=== PATIENT | male | born 1980 | race Hispanic/Latino ===

== ENCOUNTER 2024-06-30 07:26 | Outpatient (CLI) | payer OTHER | END 2024-06-30 07:27 | disposition home or self-care (01) | LOC: CSHMRI 07:26 | PROVIDERS: ATTEND Family Medicine Sports Medicine | DX: M25.431 Effusion, right wrist (principal); M65.98 Unspecified synovitis and tenosynovitis, other site; M77.8 Other enthesopathies, not elsewhere classified; S66.319A Strain of extensor muscle, fascia and tendon of unspecified finger at wrist and hand level, initial encounter ==